=== PATIENT | female | born 1990 | race Caucasian/White ===

== ENCOUNTER 2017-01-17 20:09 | Emergency (ER) | payer OTHER ==
[~2017-01-17] VITALS: Ht 165.1 cm; Wt 52.3 kg
[~2017-01-17 20:09] MED LIST: ALBUTHFA INH; ProAirHFA INH
[2017-01-17 20:13] VITALS: BP 135/89; PULSE 120; RESP 16; O2SAT 99
--- NOTE | 2017-01-17 21:00 | ED.REPORT ---
HPI- Female Date of Service Jan 17, 2017 ED Provider: Dr. Dru Lopez M.D. A healthy 26 year old female at approximately eight weeks presents to the ED with vaginal bleeding onset one week ago. The blood initially contained abundant clotting but this has resolved. The patient has used three 8hr pads since 0700 this morning. She denies other symptoms. The patient was seen yesterday by her RUBBISH COLLECTOR where an US showed a single intrauterine gestation with estimated gestational age of 6 weeks, 4 days +/- 5 days, discordant from dating derived from LNMP, with sustained bradycardia. The patient's symptoms are similar to previous miscarriages. She presents withdrawn and angry, convinced she is miscarrying but upset that "no one has been able to help her." Nursing Notes Stated Complaint: POSSIBLE MISCARRIAGE Chief Complaint: Female Abdominal Pain Nursing Notes Reviewed: Yes Allergies: Coded Allergies: cephalexin (Verified Allergy, Severe, 03/17/14) Scheduled Albuterol-Expunged Drug, Do Not Renew! (Albuterol-Expunged Drug, Do Not Renew!) 90 Mcg/Puff Hfa.aer.ad 2 PUFF INH Q4H For Wheezing or Shortness of Breath Albuterol-Expunged Drug, Do Not Renew! (ProAir HFA-Expunged Drug, Do Not Renew! ) 200 Puff/8.5 Gm Hfa.aer.ad 2 PUFF INH Q4H For Wheezing or Shortness of Breath General Time Seen by MD: 20:59 Chief Complaint Vaginal bleeding... Hx Obtained From: Patient Arrived By: Walk-in Sudden in Onset?: Yes Onset Occurred: 1 week ago Context of Onset: , 1st trimester Symptom Duration: Since onset Severity: Current: No pain currently Severity: Maximum: No pain Pertinent Negative: Pt denies other symptoms Status: Positive - ED serum HCG : 5 Para: 2 Pertinent Negative: Relieved by nothing Recent Healthcare: Recent doctor visit Similar Sx Previous: Yes Past Medical History Past Medical History - on 01/17/17 Past Surgical History Tonsillectomy at the age of [age] years old. LEEP x 2 Suction dilatation and curettage Smoking History Unknown if Ever Smoker Social History Other Social History: Good social support Ambulatory Status Independent Review of Systems Constitutional: Denies: Fever GI: Denies: Diarrhea, Vomiting Female: Reports: Vaginal bleeding - abnl (During ) Complete sys rev & neg: except as marked. Respiratory: Denies: Non-productive cough, Shortness of breath Physical Exam Initial Vital Signs Vital Signs (First) Date Time Temp Pulse Resp B/P Pulse Ox O2 Delivery O2 Flow Rate FiO2 01/17/17 20:13 36.7 120 16 135/89 99 Room Air Initial VS: Reviewed Head / Eyes: Atraumatic, Normocephalic ENT: Conjunctiva normal, No scleral icterus Neck: Supple, Full range of motion Respiratory: No respiratory distress Neurologic: Alert, Oriented, Nonfocal General/Constitutional: Awake, Alert Behavior: Positive: Withdrawn Angry Psychiatric: Cognitive function NL Abnormal Thinking / Perception: Positive: Insight abnormal Withdrawn Interpretation & Diagnostics URINE TEST: Positive URINE DIPSTICK: 1.015 sp gravity 7 pH Trace Leukocyte Esterase Trace Protein Normal Glucose + Small Ketones Normal Urobilinogen ~ 250 Sushant/ml Occult Blood Otherwise Negative Lab Results Interpretation Result Diagram: 01/17/17205501/17/172055 Test 01/17/17 20:56 01/17/17 21:22 White Blood Count 8.8th/mm3 (3.8-10.1) Red Blood Count 4.14mil/mm3 (3.90-5.20) Hemoglobin 12.7g/dL (12.0-15.6) Hematocrit 38.3% (35.0-46.0) Mean Corpuscular Volume 92.5fL (81-100) Mean Corpuscular Hemoglobin 30.7pg (27.0-35.0) Mean Corpuscular Hemoglobin Concent 33.2% (32.0-37.0) Red Cell Distribution Width 12.2% (12.3-15.4) Platelet Count 253bil/L (150-400) Sodium Level 140mEq/L (134-144) Potassium Level 3.9mEq/L (3.5-5.2) Chloride Level 102mEq/L (97-108) Carbon Dioxide Level 24mmol/L (18-29) Blood Urea Nitrogen 10mg/dL (6-20) Creatinine 0.70mg/dL (0.57-1.00) Estimat Glomerular Filtration Rate 143mL/min (>59) Glucose Level 88mg/dL (60-99) Calcium Level 8.7mg/dL (8.5-10.1) Total Bilirubin 0.2mg/dL (0.0-1.2) Aspartate Amino Transf (AST/SGOT) 62U/L (0-50) Alanine Aminotransferase (ALT/SGPT) 85U/L (0-32) Alkaline Phosphatase 51U/L (25-150) Total Protein 6.7g/dL (6.4-8.4) Albumin 4.7g/dL (3.4-5.0) HCG Beta Subunit 3205mIU/mL Hold [place] Top Tube Received (Received) Urine Color Yellow (YELLOW) Urine Appearance Hazy (CLEAR,HAZY) Urine pH 7.0 (5.0-8.0) Urine Specific [place] 1.020 (1.003-1.035) Urine Protein Negativemg/dL (NEG,TRACE) Urine Glucose (UA) Negativemg/dL (NEGATIVE) Urine Ketones Negativemg/dL (NEGATIVE) Urine Occult Blood Moderate (NEGATIVE) Urine Nitrite Negative (NEGATIVE) Urine Bilirubin Negative (NEGATIVE) Urine Urobilinogen Normalmg/dL (NORMAL) Urine Leukocyte Esterase Negative (NEGATIVE) Urine RBC 0-2/hpf (0-2) Urine WBC 0-5/hpf (0-5) Urine Epithelial Cells Few/hpf (NONE-MOD) Urine Crystals None seen (NONE SEEN) Urine Bacteria Few/hpf (NONE-FEW) Urine Hyaline Casts None/lpf (NONE) Urine Granular Casts None seen (NONE SEEN) Urine Waxy Casts None seen (NONE SEEN) Urine Red Blood Cell Casts None seen (NONE SEEN) Urine White Blood Cell Casts None seen (NONE SEEN) Urine Mucus None seen (None Seen) Urine Trichomonas None seen (NONE SEEN) Urine Yeast None (NONE SEEN) Urinalysis Comment None Urine Culture Reflexed Not indicated Re-Eval/Medical Decision Med Decision/Clinical Course 26-year-old with apparent ongoing miscarriage, presents tonight expecting to be taken to the operating room for D&E. There is no indication for emergency operative procedure at this point and this was discussed with her. She was angry and accusatory from the start of the interview, alleging that no one is done any testing and no one is trying to help her. HCG was obtained here and is 3600. She is confirmed Rh- and was given RhoGAM. An ultrasound was ordered to evaluate the status of her fetus currently, but she departed the room without notifying staff. She had been advised to follow up with her RUBBISH COLLECTOR during the day for consideration of elective TOP/D&E Source of Hx: Old records Re-Evaluation/Progress : Time of Eval: 10:52 Patient Status: Condition improved Re-Evaluation/Progress Note: Patient has left AMA before her US. Discharge & Departure Impression: Primary Impression: Threatened miscarriage Disposition: AGAINST MEDICAL ADVICE Discharge Condition All VS Reviewed: Yes Condition: No Change Referrals: Kacie Purcell (PCP) Megan Attestation Portions of this note were transcribed by Stefanie Bryson. I, Dr. Lopez, personally performed the history, physical exam, and medical decision-making; I reviewed and confirmed the accuracy of the information in the transcribed note. Signed by: Megan Braden, 01/17/2017, 23:30 copies to: Kacie Purcell Christopher W MD Jan 17, 2017 21:00 STEFANIE BRYSON Jan 17, 2017 21:01
[2017-01-17 21:10] LABS: Mean Corpuscular Hemoglobin 30.7 pg (27.0-35.0); Mean Corpuscular Volume 92.5 fL (81-100)
[2017-01-17] MEDS ORDERED: Rho(D) Immune Globulin 50 mCg Syringe IM ONE (21:20)
[2017-01-17 21:39] LABS: APPEARANCE,URINE HAZY (CLEAR,HAZY); COLOR,URINE YELLOW (YELLOW)
[2017-01-17 21:40] LABS: OCCULT BLOOD,URINE MODERATE (NEGATIVE); UROBILINOGEN,URINE NORMAL (NORMAL)
[2017-01-18] MEDS ORDERED: GABA800T2 PO (14:30)
[2017-01-18] MEDS ORDERED: TRAM50TA2 PO (14:30)
[2017-01-18] MEDS ORDERED: MULT-1018 PO (14:30)
[2017-01-18] MEDS ORDERED: TIZA4CAP PO (14:30)
[2017-01-18] MEDS ORDERED: ACET-2605 PO (14:30)
[2017-01-18] MEDS ORDERED: CYCL5TAB PO (14:30)
== END 2017-01-17 23:14 | disposition left against medical advice (07) ==
LOC: SED 20:09
DX: O20.0 Threatened abortion (principal); Z3A.08 8 weeks gestation of pregnancy; Z88.8 Allergy status to other drugs, medicaments and biological substances
CPT/HCPCS: 36415; 80053; 81000; 81025; 84702; 85027; 96372; 99284; J2788

== ENCOUNTER 2017-01-18 07:29 | Emergency (ER) | payer OTHER ==
[~2017-01-18] VITALS: Ht 165.1 cm; Wt 115.0 kg
[2017-01-18 07:32] VITALS: BP 125/84; PULSE 125; RESP 18; O2SAT 99
--- NOTE | 2017-01-18 07:44 | ED.REPORT ---
HPI-Preg Under 20 Weeks Date of Service Jan 18, 2017 ED Provider: Danny Cordero DO 26 year old female who is 8 weeks SA 3 presents to the ER accompanied by her complaining of a week of intermittent vaginal bleeding with concern for miscarriage. She states that she began as "brown, red , mucousy chunks" when using the bathroom, which has since progressed to bright red blood, only when using the bathroom, bearing down, or squatting. Patient denies any abdominal pain. Seen here in the ER yesterday for similar. No OBGYN. Upon entering the room patient is agitated and yelling at me. Nursing Notes Stated Complaint: POSSIBLE MISCARRIAGE Chief Complaint: & Delivery Nursing Notes Reviewed: Yes Allergies: Coded Allergies: cephalexin (Verified Allergy, Severe, 03/17/14) Scheduled Albuterol-Expunged Drug, Do Not Renew! (Albuterol-Expunged Drug, Do Not Renew!) 90 Mcg/Puff Hfa.aer.ad 2 PUFF INH Q4H For Wheezing or Shortness of Breath Albuterol-Expunged Drug, Do Not Renew! (ProAir HFA-Expunged Drug, Do Not Renew! ) 200 Puff/8.5 Gm Hfa.aer.ad 2 PUFF INH Q4H For Wheezing or Shortness of Breath General Time Seen by Provider: 07:41 Chief Complaint Vaginal bleeding Hx Obtained From: Patient Arrived By: Walk-in Onset Occurred: 1 week ago Symptom Duration: Since onset Progression Since Onset: Intermittent Pertinent Negative: Pt denies other symptoms Similar Sx Previous: Yes Past Medical History Past Medical History - on 01/17/17 Past Surgical History Tonsillectomy at the age of [age] years old. LEEP x 2 Suction dilatation and curettage Smoking History Unknown if Ever Smoker Social History Other Social History: Good social support Ambulatory Status Independent Review of Systems Constitutional: Denies: Chills, Fever GI: Denies: Abdominal pain, Nausea, Vomiting Female: Reports: , Vaginal bleeding - abnl, Denies: Dysuria, Flank pain, Pelvic pain Complete sys rev & neg: except as marked. Physical Exam Initial Vital Signs Vital Signs (First) Date Time Temp Pulse Resp B/P Pulse Ox O2 Delivery O2 Flow Rate FiO2 01/18/17 07:32 37.1 125 18 125/84 99 Room Air Initial VS: Reviewed Head / Eyes: Atraumatic, Normocephalic Neck: Supple, Non-tender, Full range of motion Extremities: Vascular intact, Neuro intact, No swelling, No tenderness Skin: Warm, Dry, No cyanosis Neurologic: Alert, Oriented, Nonfocal General/Constitutional: Awake, Alert, Well developed, Well nourished Behavior: Positive: Aggressive, Agitated Patient is yelling at me. Abdomen: Soft, Non-tender, No guarding, No rebound, No distention Female Genitourinary: Exam deferred EXAM: No heart tones present on ultrasound, per hydroelectric plant technician. Interpretation & Diagnostics Lab Results Interpretation Result Diagram: 01/18/17 0815 Test 01/18/17 08:15 01/18/17 10:52 White Blood Count 7.9th/mm3 (3.8-10.1) Red Blood Count 4.15mil/mm3 (3.90-5.20) Hemoglobin 12.7g/dL (12.0-15.6) Hematocrit 38.3% (35.0-46.0) Mean Corpuscular Volume 92.3fL (81-100) Mean Corpuscular Hemoglobin 30.6pg (27.0-35.0) Mean Corpuscular Hemoglobin Concent 33.2% (32.0-37.0) Red Cell Distribution Width 12.2% (12.3-15.4) Platelet Count 233bil/L (150-400) Neutrophils (%) (Auto) 50.8% (40-74) Lymphocytes (%) (Auto) 32.0% (14-46) Monocytes (%) (Auto) 9.1% (4-12) Eosinophils (%) (Auto) 7.5% (0-5) Basophils (%) (Auto) 0.5% (0-3) HCG Beta Subunit 2924mIU/mL Hold Urine Received (Received) Re-Eval/Medical Decision Med Decision/Clinical Course Patient is likely having an inevitable miscarriage, only intermittent heart tones are present on ultrasound. There also seems to be some underlying panic disorder, the patient is labile at times and did receive 2 doses of oral lorazepam. I attribute her resting tachycardia to underlying anxiety and panic disorder rather than life-threatening pathology. She seems to be only intermittently bleeding and does not seem to represent a patient with life-threatening hemorrhage nor a patient with a septic at this time. Given the patient's lack of a primary BARISTA and her very high clinical concern and request for urgent definitive management, BARISTA is consulted in the ER. Came to the ER, and we will plan to take the patient to the operating room tomorrow. Patient is stable to be discharged home at this time. Source of Hx: Old records Re-Evaluation/Progress #1: Time of Eval: 11:11 Re-Evaluation/Progress Note: Screaming, crying, and hyperventilating after lab support technician found no heart tones. I apologized and asked if there was anything that I could to to help. She screams at me not to touch her, to "get away and stop talking' , and that "sorry doesn't bring her baby back". Says that she normally runs to treat panic attacks. Re-Evaluation/Progress #2: Time of Eval: 11:42 Re-Evaluation/Progress Note: Updated patient on the plan of care. Re-Evaluation/Progress #3: Time of Eval: 12:54 Re-Evaluation/Progress Note: Patient continues to be inappropriate, angry, and screaming at me. Discussed plan to discharge. Patient is amenable to the plan. Return precautions given. All other questions addressed. Consultation : Referral / Consult Name: Dora Borjas MD Consulted With: On-call physician (OBGYN) Call Returned at: 11:36 Body Service Team Member: Will see patient Counseled Regarding: Diagnosis, Lab results, Need for follow-up, When/why to return to ED Discharge & Departure Primary Impression: Miscarriage Disposition: Home Discharge Condition All VS Reviewed: Yes Condition: Stable Additional Instructions: Go directly to the operating room tomorrow morning at 7 AM. Return to ER as needed between now and tomorrow Referrals: Kacie Purcell (PCP) oDra Borjas MD Scribe Attestation Portions of this note were transcribed by Dani Feliz. I, Dr. Cordero, personally performed the history, physical exam and medical decision-making; I reviewed and confirmed the accuracy of the information in the transcribed note. Signed by: Megan Zepeda, 01/18/2017 and 13:08 copies to: Dora Borjas MD; Kacie Purcell Timothy S DO Jan 18, 2017 07:44 DANI FELIZ Jan 18, 2017 07:52
[2017-01-18 08:24] LABS: BASOPHILS % (AUTO) 0.5 % (0-3); EOSINOPHILS % (AUTO) 7.5 % (0-5); MONOCYTES % (AUTO) 9.1 % (4-12); Mean Corpuscular Hemoglobin 30.6 pg (27.0-35.0); Mean Corpuscular Volume 92.3 fL (81-100); NEUTROPHILS % (AUTO) 50.8 % (40-74); Platelet Count 233 bil/L (150-400)
[2017-01-18] MEDS ORDERED: LORazepam 0.5 mg Tablet PO ONE ×2 (11:10→11:50)
[2017-01-18 12:58] VITALS: BP 121/83; PULSE 109; RESP 17; O2SAT 98
[2017-01-18 13:11] VITALS: BP 121/83; PULSE 109; RESP 17; O2SAT 98
--- NOTE | 2017-01-18 13:53 | CONS ---
[address] [address] CONSULTATION REPORT PATIENT: LALA MELENDEZ : 1990 MR#: [id number] ADMIT: 01/18/2017 JOB ID: [id number] DATE OF SERVICE: 01/18/2017 INPATIENT CONSULTATION: This is a 26-year-old female, 6, para 2-0-3-2 at eight weeks . I was called by ED physician for consult for possible inevitable miscarriage. She is a 26-year-old female. She is 6, para 2-0-3-2 at eight weeks . She was seen by code enforcement officer and she started to have vaginal bleeding last night. She went to the ED for evaluation and was sent home for diagnosis of threatened . At that time, there was heart rate 70. She came back today and she is complaining she still has bleeding, cramping, requests for a suction D and C. An ultrasound was performed again. When it was first performed, there was no heart rate detected. The patient then started to have an anxiety outbreak that sex crimes detective could not continue for the confirmation of heartbeat. I was called and I was planning to go down to have a bedside ultrasound. When I arrived to ED, the sex crimes detective was also there to do the second part of the ultrasound. At this time, they could detect a very slow heartbeat with very little flicker every 10-20 seconds. ALLERGIES: The patient is allergic to CEPHALEXIN with a side effect of abdominal pain. She has no other allergy reactions to any other medications. PAST MEDICAL HISTORY: She has a fibromyalgia, anxiety. PAST SURGICAL HISTORY: She has one suction D and C for miscarriage. OBSTETRICAL HISTORY: She had two vaginal delivery and 2-3 miscarriages, one with suction D and C. She gives me different story sometimes. Likely she has two miscarriages before, sometimes she says she has history of three miscarriages before. GYNECOLOGIC HISTORY: She had regular menstruation. No dysmenorrhea. No other CURATOR OF PHOTOGRAPHY AND PRINTS problems. SOCIAL HISTORY: She smokes. She drinks alcohol occasionally. Declined drug usage. PHYSICAL EXAMINATION: She is afebrile and her temperature is 37.1. Her pulse 135 on the record. When I was in the room, her pulse was about 100. Her blood pressure 125/84. Her O2 sat 99 at room air. Her abdomen is soft, nontender. She declined a pelvic examination at this time. Extremities: Nontender. LABORATORIES: Showed her white count 7.9. Her H and H 12.7/38.3. Her beta hCG 3924-slightly decreased compared to yesterday. ASSESSMENT AND PLAN: A 26-year-old female, six, para 2-0-3-2 at eight weeks , inevitable . I discussed with the patient the management at this time. The patient offered to wait for spontaneous miscarriage or for a suction D and C, and I also told her the finding at this time. There were occasionally flickers from the heart but by the situation I believe there is inevitable . The patient strongly desires for surgical management. She desires for suction D and C because her previous history of a miscarriage ended up going back to OR for D and C. she understood that it may not happen for this time if she goes through a spontaneous miscarriage. She still strongly preferred to have surgical management. I discussed with patient about the risks of surgery including infection, bleeding, perforation of the uterus. The patient understood. I did not sign a consent form today. The consent form will be signed in the OR. The surgery is scheduled tomorrow morning. The patient is instructed to arrive OR at 7 o'clock in the morning. Discussed with the patient that this is scheduled today for tomorrow. If she could not arrive OR on time, this procedure will be significantly delayed. Both her and her were in the room and they understood well. PENG
[2017-01-18] MEDS ORDERED: MULT-1018 PO (14:30)
[2017-01-18] MEDS ORDERED: ACET-2605 PO (14:30)
[2017-01-18] MEDS ORDERED: GABA800T2 PO (14:30)
[2017-01-18] MEDS ORDERED: CYCL5TAB PO (14:30)
[2017-01-18] MEDS ORDERED: TRAM50TA2 PO (14:30)
[2017-01-18] MEDS ORDERED: TIZA4CAP PO (14:30)
--- NOTE | 2017-01-18 14:45 | DRSVH ---
PROCEDURE: US OB<14 WKS+OB TRANSVAG INDICATIONS: rpt to eval fetus, requested by OBGYN OUTSIDE/PRIOR DATING DATA: Last menstrual period (LMP): November 18, 2016. LMP-based estimated date of delivery (WILLIE): August 25, 2017. First dating scan (date and location): Present study. Estimated date of delivery (WILLIE) from first dating scan: September 07, 2017. TECHNIQUE: Real-time scanning was performed of the fetus and maternal pelvic organs, with image documentation. Endovaginal scanning was also performed to better visualize the fetus and maternal ovaries. COMPARISON: Located Within [facility], , US OB<14 WKS+OB TRANSVAG, 01/16/2017, 15:52. FINDINGS: Embryo: OB-LEAN MANUFACTURING SPECIALIST Ultrasound Procedure Report Early Gestation [employer] Jeddo Rump Length: 0.6 cm Gestational Age (CRL): 6 weeks 3 days. Summary Fetus Summary Heart Rate: No measurable heart rate seen. Comments: A normal yolk sac is noted. No perigestational bleeds. Measurement variability in dating: +/- 4 weeks by LMP, +/- 7 days by mean sac diameter (use before 6 weeks gestation if crown-rump length not able to be measured), +/- 5 days by crown-rump length (6-12 weeks gestation). Maternal organs: Ovaries within normal limits. Limited images through the kidneys demonstrate no hy dronephrosis. IMPRESSION: Jeddo-rump length measuring 6 mm corresponding to 6 weeks 3 days and no definitive measur able heart rate is able to be detected. Recommend clinical correlation and if indicated repeat exami nation could be performed in several days. Dictated by: Jakob SCHULTZ Interpreted: Gaby Chapman MD on 01/18/2017 at 14:12 Transcribed by: DIXIE on 01/18/2017 at 14:44 Approved by: Gaby Chapman M.D. on 01/18/2017 at 21:43
== END 2017-01-18 13:13 | disposition home or self-care (01) ==
LOC: SED 07:29
DX: O03.9 Complete or unspecified spontaneous abortion without complication (principal); J45.909 Unspecified asthma, uncomplicated; Z3A.08 8 weeks gestation of pregnancy; Z88.1 Allergy status to other antibiotic agents

== ENCOUNTER 2017-01-19 06:58 | Day surgery (SDC) | payer OTHER ==
[~2017-01-19] VITALS: Ht 165.1 cm; Wt 51.0 kg
[2017-01-19] VITALS (9 sets, daily range): BP systolic 105–119; BP diastolic 56–70; PULSE 92–113; RESP 18–28; O2SAT 97–100
--- NOTE | 2017-01-19 02:29 | HP PRE OP ---
[address] [address] PREOPERATIVE HISTORY AND PHYSICAL PATIENT: LALA MELENDEZ : 1990 MR#: [id number] ADMIT: 01/19/2017 JOB ID: [id number] HISTORY OF PRESENT ILLNESS: H and P for patient for scheduled suction D and C on January 19, 2017. This is a 26-year-old female. She is 6, para 2-0-3-2, at 8 weeks . I saw her at emergency department on January 18, 2017, for inevitable . She is 8 weeks with vaginal bleeding for two days. Ultrasound confirmed inevitable . Physical examination at emergency department on January 18 noticed she is afebrile. The examination at the emergency department showed at that time no signs of infection, and on ultrasound there is no viable heart rate. The plan was made for suction D and C. At that time, discussed with patient about choices, including medical treatment or surgical treatment. The patient strongly desired for surgical treatment. ALLERGIES: The patient has allergic reactions to CEFOXITIN with side effect of abdominal pain. PAST MEDICAL HISTORY: She has fibromyalgia and anxiety. PAST SURGICAL HISTORY: She had a history of suction D and C fulfilled for spontaneous . OBSTETRICAL HISTORY: She had two vaginal deliveries and she had two or three miscarriages previously. GYNECOLOGIC HISTORY: She has regular menstruation. No other gynecology problems. SOCIAL HISTORY: She is a chronic smoker. She drinks alcohol occasionally and declines drug usage. PHYSICAL EXAMINATION: She was afebrile, temperature 37.1. Her pulse 125 on the record. cardiac: RRR , no murnur, pulmonay: b/l clear. When I examined her in room her pulse was around 100. Blood pressure 125/84. O2 sat 99% on room air. Her abdomen is soft, nontender. Declined a pelvic examination. Extremities nontender. LABORATORY: Showed her white count 7.9. H and H 12.7/38.3. Beta hCG 3924. ASSESSMENT AND PLAN: A 36-year-old female, para 2-0-3-2, at 8 weeks , inevitable confirmed by ultrasound. After discussion with the patient, talked with her about medical management versus surgical management versus expected management. The patient strongly desires for surgical treatment. She did desire for suction dilation and curettage. She understood the risk of infection, bleeding, perforation of the uterus, injury to the organs around the uterus. Consent form was not signed, and consent will be signed in the operating room. We will give her antibiotics by p.o. before the procedure. The patient will be discharged home after procedure. PENG
[~2017-01-19 06:58] MED LIST changes: +ACET-2605 PO; -ALBUTHFA INH; +CYCL5TAB PO; +GABA800T2 PO; +MULT-1018 PO; -ProAirHFA INH; +TIZA4CAP PO; +TRAM50TA2 PO
[2017-01-19] MEDS ORDERED: Ondansetron 2 mg/mL 2 mL Inj ONE (06:59)
[2017-01-19] MEDS ORDERED: Propofol 10,000 mCg/mL 20 mL Inj ONE (06:59)
[2017-01-19] MEDS ORDERED: MetoCLOpramide 5 mg/mL 2 mL Inj ONE (06:59)
[2017-01-19] MEDS ORDERED: Dexamethasone 4 mg/mL Inj ONE (06:59)
[2017-01-19] MEDS ORDERED: Lactated Ringer's 1,000 ML IV ONE (07:00)
[2017-01-19] MEDS ORDERED: Ondansetron 2 mg/mL 2 mL Inj IVPUSH PRN ×2 (08:45→09:35)
[2017-01-19] MEDS ORDERED: Dexamethasone 4 mg/mL Inj IVPUSH PRN (08:45)
[2017-01-19] MEDS ORDERED: Phenylephrine 10,000 mCg/mL Inj IVPUSH PRN (08:45)
[2017-01-19] MEDS ORDERED: Lactated Ringer's 500 ML IV PRN (08:45)
[2017-01-19] MEDS ORDERED: EPHEDrine Sulfate 50 mg/mL Inj IVPUSH PRN (08:45)
[2017-01-19] MEDS ORDERED: Lactated Ringer's 1,000 ML IV SCH (08:45)
[2017-01-19] MEDS ORDERED: fentaNYL-PF 50 mCg/mL 2 mL Inj IVPUSH PRN (08:45)
[2017-01-19] MEDS ORDERED: MetoCLOpramide 5 mg/mL 2 mL Inj IVPUSH PRN ×2 (08:45→09:35)
--- NOTE | 2017-01-19 08:45 | PCM.HPANE ---
Patient Data Surgeon Admitting Provider: Attending Provider:Dora Borjas MD Primary Care Physician:Kacie Purcell Other Provider:Rex Washington Anesthesia Reason for Visit Missed Ab Ht/WT & BMI Height (Feet): 5 Height (Inches): 5.00 Weight (Kilograms): 51.0 Body Mass Index 18.00 Allergies Coded Allergies: cephalexin (Verified Allergy, Severe, 03/17/14) Past Anesthesia History Anesthesia History: Denies:: Anesthesia Reactions Diabetes History Hx Diabetes?: No Medications Home Meds Incl Beta Vandana: No Reported Medications Acetaminophen/Diphenhydramine (Tylenol Pm Ex-Strength Caplet)500 Mg-25 Mg Tablet1 Each PO PRN For Pain 01/18/17 Tramadol 50 Mg [id number] Mg PO Q8H PRN For Pain Ref 0 01/18/17 Multivitamin (Multi Vitamin Daily)1 Each Tablet1 Each PO DAILY 30 Days Ref 0 01/18/17 Gabapentin 800 Mg [id number] Mg PO TID Ref 0 01/18/17 Cyclobenzaprine 5 Mg Tablet5 Mg PO TID PRN Spasm 01/18/17 Discontinued Reported Medications Tizanidine (Zanaflex)4 Mg Capsule1-2 Tab PO HS 01/18/17 Albuterol-Expunged Drug, Do Not Renew! (ProAir HFA-Expunged Drug, Do Not Renew!) 200 Puff/8.5 Gm Hfa.aer.ad2 Puff INH Q4H #8.5 GM For Wheezing or Shortness of Breath 08/01/13 Albuterol-Expunged Drug, Do Not Renew! 90 Mcg/Puff Hfa.aer.ad2 Puff INH Q4H #18 GM For Wheezing or Shortness of Breath 08/01/13 History History of ENT Problems?: No Hx of Heart Problems?: No Cardiovascular History: Denies:: Congestive Heart Failure Hypertension Hx of Respiratory Problem?: No Respiratory History: Denies:: Oxygen Administration Tuberculosis Use of C-PAP Machine Hx Neurologic Problems?: No Hx of GI Problems?: No Hx of Problems?: No Female Hx: Positive for:: Currently Denies:: Problems with Breasts? Hx Musculoskeletal Problems?: Yes Musculoskeletal History: Positive for:: Fibromyalgia Hx of Psycho/Social Problems?: Yes Psycho Social History: Positive for:: Anxiety Hx Surgeries?: Yes (DENTAL, D+C) Hx Any Other Health Problems?: Yes Other History: Denies:: Cancer Thyroid Disease Hx Diabetes: No Hx Alcohol Use: YesHx Substance Use: No Smoking Status: Unknown if Ever Smoker Have You Smoked inLast 12 mo: Yes Stop/Bang Treated for Sleep Apnea?: No Do You Have a CPAP Machine?: No P-Blood Pressure: treated: No B- Body Mass Index > 35 kg/m2: No A- Age over 50: No N- Neck Large Circumference: No G- Gender Male: No JENNIFER Risk Assessment: Low Risk, <3 Yes Risk Assessment Category Category 1A: Patient has history of documented sleep apnea, and HAS NOT received any narcotic, sedative or anesthesia administration during this stay. Category 1B: Patient has history of documented sleep apnea, and HAS received any narcotic , sedative or anesthesia administration during this stay Category 2: Patient has SUSPECTED Obstructive Sleep Apnea, and HAS received any narcotic , sedative or anesthesia administration during this stay. Category 3: Patient has SUSPECTED Obstructive Sleep Apnea and HAS NOT received narcotic, sedative or anesthesia administration during this stay. Category 4: Outpatient in Procedural Areas with known sleep apnea or who screen positive for High Risk via the STOP/BANG questionnaire. Exam Exam Vital Signs Vital Signs Date Time Temp Pulse Resp B/P Pulse Ox O2 Delivery O2 Flow Rate FiO2 01/19/17 07:49 36.0 113 18 111/64 99 Room Air General Appearance: Oriented X3 HEENT/AIRWAY: MP 1 Lungs: Normal Air Movement Heart: Regular Rate/Rhythm Meds/Labs/Diagnostics Admission Meds Current Medications Doxycycline Hyclate 100 mg 100 mg PREOP ONCE PO Last administered on 07:30; Start 01/19/17 at 08:10; Stop 01/19/17 at 08:11; Status DC Lactated Ringer's (Lr) 1,000 ml @ ud STK-MED ONCE IV Last administered on 01/19 07:00; Start 01/19/17 at 07:00; Stop 01/19/17 at 07:01; Status DC Plan Impression Patient chart reviewed, patient interviewed and anesthestic plan with risks, benefits, and alternatives discussed, and informed consent obtained. NPO Status: 7pm ASA Physical Status: ASA2 Mod Systemic Disease Anesthetic Plan: GA Bene/Risks/Altern/Consents: Yes HP Complete Prior to Induction: Yes John Daniels MD Jan 19, 2017 08:45
[2017-01-19] MEDS ORDERED: HYDROcodone-APAP 5-325 mg Tablet PO PRN (09:35)
--- NOTE | 2017-01-19 09:36 | PCM.DIGYN ---
Surgical Discharge Instruction Dates of Hospitalization Date of Hospital Admission 01/19/17 Providers Admitting Physician: Primary Care Physician: Kacie Purcell Attending Physician: Dora Borjas MD Diagnosis at Time of Discharge Diagnosis at time of discharge inevitable Post-operative diagnosis inevitable Problems: Diet Discharge Diet: No restrictions Activity Discharge Activity-General: Try not to overdue Dressing and Incisional Care Hygiene: May shower, NO bathtub, hot tub or whirlpool Additional Instructions Discharge Instructions NO sex for 2 weeks Please call office if heavy vaginal bleeding, severe abdominal pain, foul smelling discharge, fever more than 100.4 or short of breath Follow Up Plan Follow Up Plan 2weeks in office SRC with Dr Borjas Follow-up Provider (F9): Dora Borjas MD Follow-up appointment: Weeks (2) Call your provider for: Fever, Chills, Shortness of breath, Heavy vaginal bleeding, Increasing pain Dora Borjas MD Jan 19, 2017 09:36
[2017-01-19] MEDS: HYDROmorphone 1 mg/mL Inj IVPUSH PRN ×2 (09:41→09:47)
--- NOTE | 2017-01-19 14:37 | DIS ---
[address] [address] DISCHARGE SUMMARY PATIENT: LALA MELENDEZ : 1990 MR#: [id number] ADMIT: 01/19/2017 JOB ID: [id number] DIS: SUMMARY: This is a 26-year-old female, came in for suction D and C for inevitable . The procedure was not complicated. Plan to discharge home today. Motrin 600 mg prescribed, for 30 pills, with no refills. Patient is instructed to follow up in the office two weeks after the procedure. She is instructed that if there is heavy vaginal bleeding, severe abdominal pain, foul-smelling discharge, fever of 100.4, she needs to call office or go to the ED for evaluation. She understood that. She was instructed to follow up in the office in two weeks.
--- NOTE | 2017-01-19 14:39 | OP ---
[address] [address] OPERATIVE REPORT PATIENT: LALA MELENDEZ : 1990 MR#: [id number] ADMIT: 01/19/2017 JOB ID: [id number] DATE OF SURGERY: 01/19/2017 SURGEON: Dora Borjas MD PREOPERATIVE DIAGNOSIS(ES): This is a 26-year-old female. She came in today for a scheduled suction dilation and curettage for inevitable . POSTOPERATIVE DIAGNOSIS(ES): A 26-year-old female with an inevitable at eight weeks. INDICATION FOR PROCEDURE: A 26-year-old female with an inevitable at eight weeks. PROCEDURE: Suction dilation and curettage. DESCRIPTION OF PROCEDURE: The patient had the inevitable confirmed by ultrasound. Discussed with her about the possible management including medical management and surgical management. Patient strongly desires for a suction D and C. She understood there is risk of infection, bleeding, perforation of the uterus, injury to the organs around the uterus including but not limited to the bladder, ureters, major vessels, nerves, and bowels. Informed consent signed. The patient was transferred to operating room after anesthesia was noted to be adequate. She was placed in dorsal lithotomy position. She was prepared and draped in normal sterile fashion. Speculum inserted to vagina to expose the cervix. The cervix was grasped by a single-tooth tenaculum. The cervix was dilated to 8-Amharic without difficulty. A #8 suction tube was inserted to remove the products of conception, then sharp curettage was performed. To confirm the removal the other suction tube was reinserted to clear the remnants of the products of conception. At this time all instruments were removed from her vagina. Hemostasis confirmed. All specimens were sent for pathology. The patient tolerated the procedure well. She was transferred to recovery room in stable condition. Antibiotics p.o. were given before and after the procedure.
--- NOTE | 2017-01-23 10:01 | PATH ---
SURGICAL PATHOLOGY Attending Physician:Dora Borjas MD CASE STATUS: Signed Out PATIENT NAME: LALA MELENDEZ PID: [id number] : 1990 DATE COLLECTED:01/19/2017 16:20 SPECIMEN: Products of conception CLINICAL HISTORY: MISSED 1). PRODUCTS OF CONCEPTION FINAL DIAGNOSIS: Uterine Contents: Products of conception (immature chorionic villi). Negative for abnormal villi that would suggest gestational trophoblastic disease. ICD10 O0.2 GROSS DESCRIPTION: The specimen is received in formalin, labeled with the patient's name, sublabeled as products of conception and consists of multiple fragments of navarro spongy glistening tissue (6.9 x 2.5 x 0.4 cm in aggregate). No parts are identified. Section code: (A, B) tissue. Specimen entirely submitted. 01/19/17 ICD-9 CODES: CPT CODES: 1: 52818 Electronically Signed Out Stan Mckinley MD, PhD [facility] [place] [address] Technical component performed at [facility], [facility] [address], [place], [address]
== END 2017-01-19 23:59 | disposition home or self-care (01) ==
LOC: SAS 06:58
PROVIDERS: ATTEND Obstetrics & Gynecology
DX: O02.1 Missed abortion (principal); M79.7 Fibromyalgia; F41.9 Anxiety disorder, unspecified; Z79.899 Other long term (current) drug therapy
CPT/HCPCS: 36415; 59820; 86850; 86870; J1100; J1170; J1885; J2405; J2765; J7120